=== PATIENT | male | born 1940 | race Caucasian/White ===

== ENCOUNTER → 2023-10-04 13:20 | Outpatient (REF) | payer MEDICARE, OTHER, SELFPAY ==
[2023-10-04 14:12] LABS: Hematocrit 42.7 % (39.0-52.0); Hemoglobin 14.9 g/dL (13.0-18.0); Mean Corp Hgb Conc. 34.9 g/dL (33.0-37.0); Mean Corpuscular Hgb 31.8 pg (27.0-31.0); Mean Corpuscular Volume 91.2 fL (80.0-94.0); Mean Platelet Volume 12.1 fL (7.4-10.4); Platelet Count 153 10^3/uL (130-400); Red Blood Cell Count 4.68 10^6/uL (4.70-6.10); Red Cell Dist. Width 12.8 % (11.5-14.5)
[2023-10-04 14:34] LABS: Blood Urea Nitrogen 28 mg/dl (9-20); Calcium 9.3 mg/dl (8.4-10.2); Carbon Dioxide 26 mmol/L (22-30); Chloride 107 mmol/L (98-107); Glucose 130 mg/dl (70-99); Potassium 4.1 mmol/L (3.5-5.1); Sodium 141 mmol/L (135-145); eGFR 50.49
== END ==
LOC: SDSPAT 13:20
PROVIDERS: ATTENDING PHYSICIAN Specialist; FAMILY PHYSICIAN Family Medicine
DX: Z01.818 Encounter for other preprocedural examination (principal)
CPT/HCPCS: 36415; 80048; 85027; 93005

== ENCOUNTER 2023-10-07 06:30 | Day surgery (SDC) | payer MEDICARE, OTHER, SELFPAY ==
[2023-10-04 13:50] VITALS: BMI 25.3
--- NOTE | 2023-10-04 15:51 | PTCARENOTE ---
Creatinine 1.4 collected on 10/04/23; Merly at ' office was notified.
[2023-10-07] VITALS (16 sets, daily range): BP systolic 117–175; BP diastolic 74–88; BMI 25.3
[2023-10-07] MEDS: NORMOSOL-R 1000 IV (10:39)
[2023-10-07] MEDS: Pyridium 200 MG PO (15:16)
[2023-10-07] MEDS: DUONEB 3 ML INH (15:30)
--- NOTE | 2023-10-07 16:12 | PTCARENOTE ---
addendum note [id number] Received patient from OR, lungs coarse throughout, loose NPC, no SOB noted, oxygen saturation 90-91% on 15L simple mask. Dr Jiang made aware and evaluated patient . While waiting for duoneb encouraged cough and deep breathing
, began weaning simple mask down to 6L oxygen saturation 91% and duoneb admin by respiratory. Post neb, patient remains on RA @ 92% and continues to use IS demo proficiency at 500-1000. Saturation improved to 96%, evaluated by Dr Jiang and patient
stable to discharge to home. at bedside and spoke with Dr Jiang. Report given to MARCO ANTONIO RN.
== END 2023-10-07 17:08 | disposition home or self-care (01) ==
LOC: SDS 06:30
PROVIDERS: ATTENDING PHYSICIAN Specialist
DX: N21.0 Calculus in bladder (principal)
CPT/HCPCS: 52317; 82365; 94640

== ENCOUNTER 2023-10-08 03:20 | Inpatient (IN) | payer MEDICARE, OTHER, SELFPAY ==
[2023-10-07 21:38] VITALS: BP 135/82
[2023-10-07 22:00] LABS: % Basophils 0.2 % (0-2); % Immature Granulocytes 0.4 % (0-0.5); % Neutrophils 94.4 % (42.2-75.2); Absolute Basophils 0.1 10^3/uL (0-0.2); Absolute Immature Granulocytes 0.1 10^3/uL (0-0.05); Absolute Lymphocytes 0.5 10^3/uL (1.2-3.4); Absolute Monocytes 0.8 10^3/uL (0.1-0.6); Absolute Neutrophils 23.8 10^3/uL (1.4-6.5); Hematocrit 42.8 % (39.0-52.0); Hemoglobin 15.3 g/dL (13.0-18.0); Mean Corp Hgb Conc. 35.7 g/dL (33.0-37.0); Mean Corpuscular Hgb 32.3 pg (27.0-31.0); Mean Corpuscular Volume 90.5 fL (80.0-94.0); Mean Platelet Volume 11.5 fL (7.4-10.4); Nucleated Red Blood Cells % 0 % (-); Platelet Count 147 10^3/uL (130-400); Red Blood Cell Count 4.73 10^6/uL (4.70-6.10); White Blood Cell Count 25.2 10^3/uL (4.8-10.8)
[2023-10-07 22:16] LABS: ALT (SGPT) 21 U/L (0-50); AST (SGOT) 31 U/L (17-59); Albumin 4.1 g/dl (3.5-5.0); Alkaline Phosphatase 68 U/L (38-126); Blood Urea Nitrogen 18 mg/dl (9-20); Calcium 9.2 mg/dl (8.4-10.2); Carbon Dioxide 22 mmol/L (22-30); Chloride 105 mmol/L (98-107); Glucose 159 mg/dl (70-99); Sodium 135 mmol/L (135-145); Total Bilirubin 1.1 mg/dl (0.2-1.3); Total Protein 6.1 g/dl (6.3-8.2); eGFR > 60.00
[2023-10-08] VITALS (9 sets, daily range): BP systolic 111–160; BP diastolic 59–80; BMI 25.7; BMI 24.9
--- NOTE | 2023-10-08 00:45 | ED.GENMED ---
History of Present Illness
General
Chief Complaint: Fever
Source: patient and spouse
Exam Limitations: none
Time Seen by Provider: 10/08/23 00:42
Nursing documentation reviewed up to this point in time: agreed with
History of Present Illness
History of Present Illness:
82-year-old male presents emergency department due to a fever, and aspiration that occurred during urology procedure to remove bladder stone. This was done by Dr. Ng today.
Past History
Past History
ED Past Medical History: Cancer (Skin cancer) and Other (Inguinal hernia, kidney stones)
ED Past Surgical History: Urological (Bladder stone removal)
Social History
Tobacco: Former smoker
Alcohol: None
Drug: None
Personal:
Living: with family
Employment: Retired
Review of Systems
Review of Systems
Allergies reviewed?: Yes
All Other Systems: Not applicable
Constitutional: Reports fever
EENT: Reports no symptoms
Respiratory: Reports cough and trouble breathing
Cardiac: Reports no symptoms
ABD/GI: Reports no symptoms
: Reports no symptoms
Musculoskeletal: Reports no symptoms
Skin: Reports no symptoms
Neurological: Reports no symptoms
Endocrine: Reports no symptoms
Hematologic/Lymphatic: Reports no symptoms
Psychiatric: Reports no symptoms
Phy Exam
Physical Exam
Physical Exam:
Physical Exam
General: Temperature 99.4
Neck: supple. no meningeal signs. normal posterior pharynx
Heart: s1/s2 tachycardia, no murmur. equal radial
pulses.
HEENT: Pupils equal round reactive to light, EOMI
Lungs: Rhonchi left lower lung
Abdomen: normal bowel sounds. not tender. no CVAT
Neuro: alert and oriented. no focal neurological deficits cranial nerves II through XII intact
Skin: no rash
Psychiatric: well kept. interactive and cooperative
Extremities: no edema. no calf tenderness. negative homans. good distal pulses
Course
Orders/Labs/Results
Orders:
Orders
10/07/23 21:42
Electrocardiogram (*1) Urgent
Reason for Study: Other
Other Reason for Exam: Possible Sepsis
EKG- Treatment ONCE
CR Chest - 2 Views Urgent
Comment:
Reason For Exam: suspected infection
10/07/23 21:55
Complete Blood Count/With Diff Urgent
Comprehensive Metabolic Panel Urgent
10/08/23 00:45
IV Insert/Care/Rem.- Treatment PRN
Blood Culture Q30M
[place] Source: Blood/Venous
Specimen Description:
10/08/23 00:48
Vancomycin 1500 mg IVPB NOW Vancomycin [Vancocin] 1,500 mg 0.9% Sodium Chloride [Nss] 20 ml 0.9% Sodium Chloride 250 ml [Nss] 250 ml IV NOW
Zosyn 4.5 grams IVPB NOW Piperacillin/Tazo 4.5 Gram [Zosyn] 4.5 gram in 100 ml IV NOW
10/08/23 01:15
Blood Culture Q30M
[place] Source: Blood/Venous
Specimen Description:
Abnormal Lab Results
10/07/23
21:55
WBC 25.2 H 10^3/uL
(4.8-10.8)
MCH 32.3 H pg
(27.0-31.0)
MPV 11.5 H fL
(7.4-10.4)
Abs Immat Gran (auto) 0.1 H 10^3/uL
(0-0.05)
Absolute Neuts (auto) 23.8 H 10^3/uL
(1.4-6.5)
Absolute Lymphs (auto) 0.5 L 10^3/uL
(1.2-3.4)
Absolute Monos (auto) 0.8 H 10^3/uL
(0.1-0.6)
Neutrophils % 94.4 H %
(42.2-75.2)
Lymphocytes % 2.0 L %
(20.5-51.1)
Glucose 159 H mg/dl
(70-99)
Total Protein 6.1 L g/dl
(6.3-8.2)
10/07/23 21:55
10/07/23 21:55
Vital Signs
Initial and Last Documented VS:
Initial Vital Signs
Temp Pulse Resp BP Pulse Ox
99.4 F 127 19 135/82 94
10/07/23 21:38 10/07/23 21:38 10/07/23 21:38 10/07/23 21:38 10/07/23 21:38
Last Documented Vital Signs
Temp Pulse Resp BP Pulse Ox
99.4 F 127 19 135/82 94
10/07/23 21:38 10/07/23 21:38 10/07/23 21:38 10/07/23 21:38 10/07/23 21:38
MDM/Problems Addressed
Differential Diagnosis Includes:
PE, pneumonia
MDM/Problems Addressed:
82-year-old male with left lower lobe pneumonia, leukocytosis, fever. Aspiration likely. Admit to hospitalist.
*Radiology
Radiology exam reviewed: radiology read reviewed (cxr: left basilar pneumonia)
*Pulse Oximetry
Patient hypoxic: no
*EKG
Interpreted by ED Provider?: Yes
EKG Intrepretation Date: 10/08/23
EKG Intrepretation Time: 01:12
Interpretation: abnormal
Comparison EKG: changes noted
Heart Rate: 112
Rate: tachycardiac
Rhythm: sinus tachycardia
[place]: left axis deviation
Interval: normal interval
QRS Pattern: normal QRS
Ischemia: no ischemia
*Automation Engineer Interpretation
Rate: tachycardiac
Interpretation: abnormal
Heart Rate: 115
Rhythm: sinus tachycardia
*Critical Care Note
Total Time (30-74mins, 75-104mins- exclusive of procedures): Not Applicable
Data Reviewed
Review of Other/Old Records Reveals: Operative Reports (cystolitholapaxy performed by Dr. Ng 10/07/2023)
Patient Management
Social determinants of health affecting care: Living situation
Discussion with other providers: Hospitalist
Escalation/DeEscalation of care consider admission/obs:
Admit indicated
ED Attending Note
-
Portions of this chart may have been created with voice recognition software.� Occasional wrong word or��sound alike� substitutions may have occurred due to the inherent limitations of voice recognition software.
Discharge Plan
Departure
Patient Disposition: Home (Routine Discharge)
Date of Disposition: 10/08/23
Time of Disposition: 01:04
Patient with high blood pressure during this ER visit?: Yes
Condition: Fair
Discharge Problem:
Aspiration pneumonia of left lower lobe due to vomit
Prescriptions:
No Action
aspirin [Baby Aspirin] 81 mg Tablet,Chewable
81 mg PO DAILY
Vitamin D3
1 dose PO DAILY
epinephrine [Epi E-Z Pen] 0.3 mg/0.3 mL Auto-Injector
0.3 mg IM DIRECTED
Referrals:
Silvano Valenzuela DO [Family Provider] -
Interventions
Interventions:
*General Assessment Last Done: 10/07/23 21:38
Discharge Date and Time
Print Language: BANGLADESHI
[2023-10-08 01:44] LABS: Lactic Acid 1.6 mmol/L (0.7-2.0)
[2023-10-08] MEDS: ZOSYN 100 IV (01:47)
[2023-10-08] MEDS: NSS 500 IV (01:50)
--- NOTE | 2023-10-08 02:26 | HPS.HSE ---
Family Physician
-
Family Physician: Silvano Valenzuela, DO
Chief Complaint
-
Fever, Cough
History of Present Illness
Patient is an 82y M with PMH significant for BPH and bladder stone who presents to ED complaining of fever and cough. Patient was seen at earlier today for scheduled cystolitholapaxy. This procedure was completed and in the recovery unit,
patient was noted to have some issues with cough and hypoxemia. He was given breathing treatments and was informed that patient had aspirated during recovery (he was intubated for this procedure). Patient was discharged to home, but continued
to have hacking cough. At home, he developed a fever to 101 degrees. He spoke with Urology who advised he return to the ED for evaluation.
Medical History
Past Medical History
Past Medical History: Reports Other
Additional Past Medical History:
BPH
Bladder Stone
Bladder Diverticulum
Hypertension
Past Surgical History: Reports Other
Additional Past Surgical History:
Herniorrhaphy
TURP
Cystolitholapaxy
Social History
Tobacco: Former Smoker (Previous cigar smoker. Quit > 10 years ago.)
Alcohol: Daily (1 glass wine daily.)
Personal:
Living: With Family
Family History
Family History: Not pertinent
Allergies / Home Medications
Allergies reflects when Allergies were last updated in [facility].
Home Medications with original date entered in [facility]
Allergy/Medication List:
Allergies
Allergy/AdvReac Type Severity Reaction Status Date / Time
bee venom protein (honey bee) Allergy Anaphylaxis Verified 10/07/23 10:21
Tetanus Vaccines and Toxoid Allergy Body Verified 10/07/23 10:21
Swelling
Home Medications
Vitamin D3 1 dose PO DAILY 10/04/23
aspirin 81 mg chewable tablet 81 mg PO DAILY 10/04/23
epinephrine 0.3 mg/0.3 mL injection, auto-injector 0.3 mg IM DIRECTED 10/04/23
Review of Systems
-
History Source: Patient
A 12 point ROS was completed and negative except as noted: Yes
Constitutional: Reports Fever, Fatigue and Chills
EENT: Denies Sore Throat
Respiratory: Reports Cough; Denies Hemoptysis or Trouble Breathing
Cardiac: Denies Chest Pain or Palpitations
Abdomen/GI: Denies Abdominal Pain, Nausea, Vomiting or Diarrhea
: Denies Dysuria, Frequency, Flank Pain or Bleeding
Musculoskeletal: Denies Joint Pain or Edema
Neurological: Denies Dizzy or Headache
Physical Exam
Vital Signs
Vital Signs
Temp Pulse Resp BP Pulse Ox
99.4 F 127 19 135/82 96
10/07/23 21:38 10/07/23 21:38 10/07/23 21:38 10/07/23 21:38 10/08/23 01:51
Physical Exam
General: Other (82y M in no acute distress.)
HEENT: Moist mucous membranes and PERRLA
Respiratory: Other (Coarse breath sounds at L base. No wheezing.)
Cardiac: S1/S2 and Regular Rhythm; No Murmur
GI: Soft, Non Tender, Non Distended and Normal Bowel Sounds
Musculoskeletal: No Clubbing, No Cyanosis and No Edema
Psych: No Anxious or Depressed
Laboratory Results
-
10/07/23 21:55
10/07/23 21:55
Laboratory Results
Lactic Acid 1.6 mmol/L (0.7-2.0) 10/08/23 01:24
Total Bilirubin 1.1 mg/dl (0.2-1.3) 10/07/23 21:55
AST 31 U/L (17-59) 10/07/23 21:55
ALT 21 U/L (0-50) 10/07/23 21:55
Alkaline Phosphatase 68 U/L (38-126) 10/07/23 21:55
Impression/Plan
-
A/P: Patient is an 82y M with PMH significant for BPH and bladder stone who presents to ED complaining of cough and fever s/p Urologic procedure this AM.
LLL Pneumonia
Sepsis secondary to the above
Acute Hypoxemic Respiratory Insufficiency secondary to the above
- Admit for further evaluation and treatment.
- Patient presents with leukocytosis and tachycardia and symptoms / CXR consistent with pneumonia.
- Evidence of organ dysfunction with SpO2 at a low of 89% on room air during ED stay.
- Reported fever to 101 at home but none here thus far.
- IV abx to continue with Zosyn given reported aspiration.
- Supportive care.
- Follow for clinical improvement.
Bladder Stone
POD#1 s/p Cystolitholapaxy
Bladder Diverticulum
BPH
- Stable. No issues post-op.
- Bladder scan protocol. Monitor for any new complaints.
DVT Prophylaxis: SCDs
Code Status: Full
[2023-10-08] MEDS: VANCOCIN 300 ML IV (02:47)
[2023-10-08] MEDS: VANCOCIN 300 MG IV (02:47)
[2023-10-08] MEDS: NSS 1000 IV (04:32)
[2023-10-08 05:50] LABS: Hemoglobin 13.5 g/dL (13.0-18.0); Mean Corp Hgb Conc. 33.8 g/dL (33.0-37.0); Mean Corpuscular Hgb 32.3 pg (27.0-31.0); Mean Corpuscular Volume 95.7 fL (80.0-94.0); Mean Platelet Volume 11.9 fL (7.4-10.4); Platelet Count 137 10^3/uL (130-400); Red Blood Cell Count 4.18 10^6/uL (4.70-6.10); Red Cell Dist. Width 13.1 % (11.5-14.5); White Blood Cell Count 20.9 10^3/uL (4.8-10.8)
[2023-10-08 06:10] LABS: Blood Urea Nitrogen 18 mg/dl (9-20); Calcium 8.5 mg/dl (8.4-10.2); Carbon Dioxide 27 mmol/L (22-30); Chloride 105 mmol/L (98-107); Estimated Creatinine Clearance 36 ml/min; Glucose 110 mg/dl (70-99); Potassium 4.2 mmol/L (3.5-5.1); Sodium 139 mmol/L (135-145); eGFR 50.49
--- NOTE | 2023-10-08 06:10 | CON.MD ---
Consultation - Medical
-
see dictated note
pt underwent bladder stone removal yesterday
admitted with aspiration pneumonia
no urologic complaints at this time
on antibx/oxygen
will follow
[2023-10-08] MEDS: ZOSYN 50 IV ×2 (08:28→13:51)
[2023-10-08] MEDS: LOW STRENGTH ASPIRIN 81 MG PO (08:29)
--- NOTE | 2023-10-08 10:36 | PTOTSP ---
Speech Therapy Assessment
Oral/pharyngeal swallow deemed within functional limits without overt signs of aspiration. Passed 3 ounce water challenge which indicates low risk for silent aspiration.
Recommend
1. Regular solids and thin liquids.
2. No skilled ST indicated.
3. If hoarse voice persists, consider ENT follow up in op setting.
--- NOTE | 2023-10-08 12:53 | PTCARENOTE ---
patient's voice hoarse, tolerated breakfast, oob in chair, vss, will continue to monitor.
--- NOTE | 2023-10-08 13:45 | PTCARENOTE ---
Addendum entered by Renate Freitas RN 10/08/23 16:00:
patient placed on room air with sao2 94% on rest while sitting in chair. ambulated patient 200 feet and sao2 95% with ambulation. once back in chair sao2 95%, educated on lying flat, will continue to monitor.
Original Note:
patient placed on room air with sao2 94% on rest while sitting in chair. ambulated patient 200 feet and sao2 95% with ambulation. once back in chair sao2 95%, will continue to monitor.
--- NOTE | 2023-10-08 13:56 | W.PN.HOSP.TC ---
Today's Communication/Plan
-
wean O2 to off
zosyn to augmentin at d/c
Assessment / Plan
Assessment / Plan
pt is an 82 year old male
LLL Pneumonia with Sepsis and Acute Hypoxemic Respiratory Insufficiency--wean O2 off--cont IV zosyn--if stable off room air, can d/c with oral augmentin--all likely due to aspiration from surgery
Bladder Stone--POD#1 s/p Cystolitholapaxy/Bladder Diverticulum/BPH - Stable. No issues post-op - Bladder scan protocol. Monitor for any new complaints.
DVT Prophylaxis: SCDs
Code Status: Full
Anticipated Discharge: Within 24 hours
Subjective/Interval History
-
Date of Service: October 08, 2023
pt wants to go home
Objective Data
-
Labs:
Laboratory Results
10/08/23
05:15
WBC 20.9 H
Hgb 13.5
Hct 40.0
Plt Count 137
Sodium 139
Potassium 4.2
Chloride 105
Carbon Dioxide 27
BUN 18
Creatinine 1.4 H
Glucose 110 H
Calcium 8.5
Vital Signs:
max temp for 24 hours
10/08/23
01:30
Temp 99.6 F
Vital Signs
Temp Pulse Resp BP Pulse Ox
98.0 F 78 16 114/59 99
10/08/23 11:40 10/08/23 11:40 10/08/23 11:40 10/08/23 11:40 10/08/23 11:40
I&O
10/07/23 10/08/23 10/09/23
06:59 06:59 06:59
Intake Total 550 / 550
Output Total 400 / 400
Balance 150 / 150
Review of Systems
-
All other systems: Reviewed and negative
Physical Exam
-
General: Well Developed, Well Nourished and No Apparent Distress
HEENT: Normocephalic, Atraumatic and Oxygen
Respiratory: Rhonchi (left base)
Cardiac: Regular Rhythm and S1/S2; Negative Murmur
GI: Soft, Nontender, Nondistended and Normal Bowel Sounds
Musculoskeletal: No Clubbing, No Cyanosis and No Edema
Neuro: Awake and Alert
Psych: Calm
--- NOTE | 2023-10-08 16:49 | CM ---
Alert awake oriented patient who lives with his Luma who lives in a 2story home with 5 step to enter and bed and bathroom on first floor. He is independent in driving and in all activities of daily living.He was offered VN he declined need.
drove him home.
No VN hx / No SNF history
[facility]
PCP DR Valenzuela
PLAN Home Declined VN
--- NOTE | 2023-10-08 17:04 | W.DCSUMMARY ---
Discharge Summary
Discharge Data
Date of Admission: 10/08/23
Date of Discharge: 10/08/23
-
Pending Results: Yes
Additional Pending Results:
blood cultures
Hospital Course
Primary care physician : Silvano Valenzuela
Principal Discharge diagnosis : Left lower lobe pneumonia with sepsis (resolved) with acute hypoxemic respiratory insufficiency (resolved)
Chronic Discharge diagnosis : Bladder stone removal postop day 1
Hospital Course : Patient was an 82-year-old male with a history of benign prostatic hyperplasia and a bladder stone who presented complaining of fever and cough. Patient was at the outpatient surgery center earlier for scheduled cystolitholapaxy.
Patient completed in the recovery unit he was having cough and hypoxemia was informed that the patient aspirated during recovery as he was intubated for the procedure. Patient was discharged home but then continued to have a hacking cough. He
had fever to 101 and came back to the emergency room for evaluation and treatment. He was found to have left lower lobe pneumonia. He was admitted.
Problem #1: Left lower lobe pneumonia with sepsis and acute hypoxemic respiratory insufficiency (resolved). Patient no longer had fevers. He was admitted and started on Zosyn. Oxygen was weaned off and he remained 95% on room air. Zosyn was
changed to Augmentin. He will be discharged with a 10-day course of antibiotics and at approximately the 2-week jacoby should have repeat chest x-ray to ensure clearance. Tessalon Perles have also been given to help with cough.
Problem #2: Bladder stone removal postop day 1. He had no issues after the procedure. He was seen in consultation by urology and is recommended to follow-up at his previously scheduled follow-up with them.
Patient is stable for discharge home at this time. If there are any questions regarding this dictation or his hospital stay, please not hesitate to call. Our office number is [phone].
Discharge Plan
-
Patient Disposition: Home (Routine Discharge)
Discharge Diagnosis/Procedures: Left lower lobe pneumonia with sepsis (resolved) and acute hypoxemic respiratory insufficiency (resolved), bladder stone removal POD #1
Condition: Good
Diet: As tolerated and Regular
Activity: As tolerated
Driving Restrictions: As prior to admission
Bathing Restrictions: None
Referrals:
Silvano Valenzuela, [Family Provider] - in less than 1 week
Prescriptions:
New
acetaminophen 325 mg Tablet
650 mg PO Q4HPRN PRN (Reason: Mild Pain / Temp > 101) Qty: 0 0RF
amoxicillin-pot clavulanate 875-125 mg tablet
1 tab PO Q12H Qty: 20 0RF
benzonatate 200 mg capsule
200 mg PO TID PRN (Reason: cough) Qty: 15 0RF
Continued
aspirin 81 mg Tablet,Chewable
81 mg PO DAILY
Vitamin D3
1 dose PO DAILY
epinephrine 0.3 mg/0.3 mL Auto-Injector
0.3 mg IM DIRECTED
Rx Instructions:
aniphylaxis
Discharge Orders:
Discharge Patient (As Directed); Ordered 10/08/23
Ordered By: Ana M Oglesby
Discharge Date and Time
Discharge Date/Time: 10/08/23 15:48
Print Language: [place]ET[place]
== END 2023-10-08 15:48 | disposition home or self-care (01) | DRG 205 ==
LOC: 3 WEST ACU 03:20
PROVIDERS: ADMITTING PHYSICIAN Hospitalist; ATTENDING PHYSICIAN Internal Medicine; EMERGENCY PHYSICIAN Emergency Medicine; FAMILY PHYSICIAN Family Medicine; OTHER PHYSICIAN Specialist
DX: J95.89 Other postprocedural complications and disorders of respiratory system, not elsewhere classified (principal); A41.9 Sepsis, unspecified organism; J69.0 Pneumonitis due to inhalation of food and vomit; R09.02 Hypoxemia; N40.0 Benign prostatic hyperplasia without lower urinary tract symptoms; I10 Essential (primary) hypertension; N32.3 Diverticulum of bladder; Y83.8 Other surgical procedures as the cause of abnormal reaction of the patient, or of later complication, without mention of misadventure at the time of the procedure; Z87.891 Personal history of nicotine dependence; Z79.82 Long term (current) use of aspirin
CPT/HCPCS: 71046; 80048; 80053; 82365; 83605; 85025; 85027; 87040; 92610; 93005; 96365; 99285